=== PATIENT | female | born 1970 | race Caucasian/White ===

== ENCOUNTER 2021-12-29 10:39 | Emergency (ER) | payer OTHER ==
[~2021-12-29] VITALS: Ht 165.1 cm; Wt 77.3 kg
[2021-12-29 11:40] LABS: HEMATOCRIT 44.6 % (36-46); HEMOGLOBIN 14.9 g/dL (12.0-16.0); MEAN CORPUSCULAR HEMOGLOBIN 29.8 pg (26.0-34.0); MEAN CORPUSCULAR HGB CONC 33.4 G/dL (31.0-37.0); MEAN CORPUSCULAR VOLUME 89 fL (80-100); PLATELET COUNT (AUTO) 190 K/uL (150-450); RED CELL DISTRIBUTION WIDTH 12.3 % (11.5-14.5)
[2021-12-29 11:52] LABS: ANION GAP 8 mmol/L (8-16); CALCIUM, TOTAL 9.3 mg/dL (8.8-10.5); CARBON DIOXIDE 26 mmol/L (22-29); CHLORIDE 103 mmol/L (98-107); CREATININE 0.68 mg/dL (0.60-1.30); GLOMERULAR FILTR. RATE CALC > 60 mL/min (>60); GLUCOSE,RANDOM 299 mg/dL (70-110); POTASSIUM 3.8 mmol/L (3.5-5.1); SODIUM SERUM 137 mmol/L (136-145); UREA NITROGEN, BLOOD 11 mg/dL (7-18)
[2021-12-29 11:57] LABS: ALANINE AMINOTRANSFERASE 30 U/L (12-78); ALBUMIN 3.6 g/dL (3.4-5.0); ALKALINE PHOSPHATASE 74 U/L (46-116); ASPARTATE AMINOTRANSFERASE 11 U/L (15-37); BILIRUBIN,TOTAL 0.4 mg/dL (0.1-1.0); LIPASE 79 U/L (73-393); TOTAL PROTEIN, SERUM 7.4 g/dL (6.4-8.2)
[2021-12-29 12:43] LABS: BAND NEUTROPHILS % (MANUAL) 8 % (0-5); LYMPHOCYTES % (MANUAL) 11 % (22-44); MONOCYTES % (MANUAL) 6 % (2-9); SEGMENTED NEUTROPHILS % 75 % (40-70)
[2021-12-29 14:24] VITALS: BP 120/74
[2021-12-29] MEDS ORDERED: METF-1211 PO (15:24)
== END 2021-12-29 15:26 | disposition home or self-care (01) ==
LOC: EMS 10:39
DX: R10.13 Epigastric pain (principal); E11.65 Type 2 diabetes mellitus with hyperglycemia
CPT/HCPCS: 80053; 83690; 85025; 99283

== ENCOUNTER 2023-06-28 10:42 | Emergency (ER) | payer OTHER ==
[~2023-06-28] VITALS: Ht 167.6 cm; Wt 79.5 kg
[~2023-06-28 10:42] MED LIST: METF-1211 PO
[2023-06-28 10:45] VITALS: TEMP 98.3
[2023-06-28 11:01] LABS: GLUCOMETER DEV NAME(LOC) ER.6; GLUCOSE,POINT OF CARE 189 MG/DL (70-110)
[2023-06-28 11:24] LABS: COVID AG,FIA SOURCE NASAL SWAB
[2023-06-28 11:37] LABS: RAPID GROUP A STREP NEGATIVE (NEGATIVE)
[2023-06-28 11:43] LABS: INFLUENZA TYPE A NEGATIVE FOR TYPE A (NEGATIVE); INFLUENZA TYPE B NEGATIVE FOR TYPE B (NEGATIVE)
[2023-06-28 11:44] LABS: SARS-COV2 (COVID) ANTIGEN,FIA Negative (Negative)
[2023-06-28] MEDS ORDERED: DULA3PEN SQ (12:59)
[2023-06-28] MEDS ORDERED: FLUO20CA36 PO (12:59)
[2023-06-28] MEDS ORDERED: METF-445 PO (12:59)
[2023-06-28] MEDS ORDERED: EMPA10TA3 PO (12:59)
[2023-06-28] MEDS ORDERED: 0.9% SODIUM CHLORIDE 10 ML SYRINGE IVP PRN (13:00)
[2023-06-28] MEDS ORDERED: AZITHROMYCIN 500 MG/NS 250 ML IV ONE (13:00)
[2023-06-28] MEDS ORDERED: SODIUM CHLORIDE 0.9% 2,400 ML IV ONE (13:00)
[2023-06-28] MEDS ORDERED: CefTRIAXone 1 GM/DEXTROSE 50 ML IV ONE (13:00)
[2023-06-28] MEDS ORDERED: ACET-66 PO (13:08)
[2023-06-28] MEDS ORDERED: CODE10LI2 PO (13:08)
[2023-06-28 13:25] VITALS: BP 131/75; PULSE 88; RESP 16
== END 2023-06-28 13:36 | disposition home or self-care (01) ==
LOC: EMS 10:42
DX: J06.9 Acute upper respiratory infection, unspecified (principal); J02.8 Acute pharyngitis due to other specified organisms; E11.65 Type 2 diabetes mellitus with hyperglycemia; Z20.822 Contact with and (suspected) exposure to COVID-19
CPT/HCPCS: 82962; 87430; 87804; 99283